=== PATIENT | male | born 1990 | race African-American/Black ===

== ENCOUNTER 2019-11-06 13:08 | Emergency (ER) | payer OTHER ==
[~2019-11-06] VITALS: Ht 175.3 cm; Wt 81.7 kg
[2019-11-06 13:16] VITALS: BP 111/53
[2019-11-06] MEDS ORDERED: NORCO 5-325 TA1 EAC1 PO (13:25)
[2019-11-06] MEDS ORDERED: IBUPROFEN 800800 M1 PO (13:25)
[2019-11-06] MEDS ORDERED: FLEXERIL PO (13:25)
[2019-11-06] MEDS ORDERED: AUGMENTIN 875-1 EACH PO (13:25)
== END 2019-11-06 13:34 | disposition home or self-care (01) ==
LOC: M.ERS 13:08
DX: K02.9 Dental caries, unspecified (principal); M26.603 Bilateral temporomandibular joint disorder, unspecified; F17.210 Nicotine dependence, cigarettes, uncomplicated